=== PATIENT | female | born 1940 | race Caucasian/White ===

== ENCOUNTER 2017-02-28 15:02 | Observation (INO) | payer MEDICARE, MEDICAID ==
[2017-02-28] MEDS ORDERED: Sodium Chloride 0.9% 10 ML Syringe FLUSH PRN (15:21)
[2017-02-28] MEDS ORDERED: Albuterol/Ipratropium 3.0-0.5 MG/3 ML Neb Soln NEB ONE (15:33)
--- NOTE | 2017-02-28 15:33 | EDM.PDOC ---
ED HPI GENERAL MEDICAL PROBLEM - General Chief Complaint: Respiratory Problem Stated Complaint: COUGHING, CHEST PAIN Time Seen by Provider: 02/28/17 15:11 Source of Information: Reports: Patient, Family, RN, RN Notes Reviewed History Limitations: Reports: No Limitations - History of Present Illness INITIAL COMMENTS - FREE TEXT/NARRATIVE: Patient presents to the emergency room at [facility] with a two-day history of productive cough, shortness of breath, chest discomfort, and generalized weakness. The patient has not tried any [id number]-[id number] medications. The only past medical history is breast cancer, and when she had a left mastectomy approximately 3 years ago. The patient is a former smoker. The patient denies any focal neurological deficit. The patient's appetite has been decreased. She is trying to stay hydrated but does not feel like drinking most of the time. The patient denies any lower extremity swelling. The patient denies any nausea vomiting or diarrhea. Onset Date: 02/27/17 - Related Data Allergies Allergy/AdvReac Type Severity Reaction Status Date / Time No Known Allergies Allergy Verified 02/28/17 15:53 Home Meds: Home Meds Pravastatin Sodium [Pravastatin Sodium] 20 mg PO DAILY 02/28/17 [History] ED ROS GENERAL - Review of Systems Review Of Systems: See Below Constitutional: Reports: Weakness, Fatigue, Decreased Appetite. Denies: Chills HEENT: Reports: No Symptoms Respiratory: Reports: Shortness of Breath, Wheezing, Pleuritic Chest Pain, Cough , Sputum. Denies: Hemoptysis Cardiovascular: Reports: Chest Pain, Dyspnea on Exertion. Denies: Palpitations GI/Abdominal: Denies: Abdominal Pain, Diarrhea, Nausea, Vomiting Skin: Reports: No Symptoms Neurological: Reports: Dizziness. Denies: Headache ED EXAM, GENERAL - Physical Exam Exam: See Below Exam Limited By: No Limitations General Appearance: Alert, No Apparent Distress Eye Exam: Bilateral Eye: EOMI, Normal Inspection, PERRL Ears: Hearing Loss Neck: Supple Respiratory/Chest: Decreased Breath Sounds, Crackles, Rhonchi, Wheezing Cardiovascular: Normal Peripheral Pulses, No Edema, Tachycardia Peripheral Pulses: 2+: Radial (L), Radial (R) GI/Abdominal: Soft, Non-Tender, Abnormal Bowel Sounds (Hypoactive) Extremities: Normal Inspection Neurological: Alert, Oriented Skin Exam: Warm, Dry, Intact, Normal Color, No Rash EKG INTERPRETATION EKG Date: 02/28/17 Time: 15:19 Rhythm: NSR Rate (beats/min): [address] [place]: normal P-wave: present QRS: normal ST-T: normal QT: normal TN/PQ Interval: 0.18 Comparison: NA - no prior EKG EKG Interpretation Comments: Sinus Tachycardia with occasional ventricular premature complexes Probable Inferior LA, probably old Course - Vital Signs Last Recorded V/S: Last Vital Signs Temp 37.2 C 02/28/17 15:10 Pulse 126 H 02/28/17 16:07 Resp 24 H 02/28/17 15:10 BP 155/93 H 02/28/17 15:10 Pulse Ox 90 L 02/28/17 16:07 - Orders/Labs/Meds Orders: Active Orders 24 hr Category Date Time Status Admission Status [Patient Status] [ADT] Routine ADT 02/28/17 16:26 Active EKG 12 Lead [EKG Documentation Completion] [RC] STAT Care 02/28/17 15:21 Active RT Aerosol Therapy [RC] ASDIRECTED Care 02/28/17 15:34 Active Chest 2V [CR] Stat Exams 02/28/17 15:21 Taken CULTURE BLOOD [BC] Stat Lab 02/28/17 15:30 Received CULTURE BLOOD [BC] Stat Lab 02/28/17 15:41 Results UA W/MICROSCOPIC [URIN] Stat Lab 02/28/17 15:20 Uncollected Sodium Chloride 0.9% [Normal Saline] 1,000 ml Med 02/28/17 15:30 Active IV ASDIRECTED Sodium Chloride 0.9% [Saline Flush] Med 02/28/17 15:21 Active 10 ml FLUSH ASDIRECTED PRN Blood Culture x2 Reflex Set [OM.PC] Stat Oth 02/28/17 15:20 Ordered Peripheral IV Insertion Adult [OM.PC] Routine Oth 02/28/17 15:21 Ordered Medication Orders Sodium Chloride (Normal Saline) 1,000 mls @ 999 mls/hr IV ASDIRECTED [facility] Last Admin: 02/28/17 15:38 Dose: 999 mls/hr Sodium Chloride (Saline Flush) 10 ml FLUSH ASDIRECTED PRN PRN Reason: Keep Vein Open Labs: Laboratory Tests 02/28/17 02/28/17 02/28/17 Range/Units 15:30 15:41 15:41 WBC 7.2 (4.0-10.0) x10^3/uL RBC 4.94 (4.00-5.50) x10^6/uL Hgb 14.3 (12.0-16.0) g/dL Hct 42.9 (33.0-47.0) % MCV 86.8 (78.0-93.0) fL MCH 28.9 (26.0-32.0) pg MCHC 33.3 (32.0-36.0) g/dL RDW Coeff of Ladan 14.0 (10.0-15.0) % Plt Count 183 (130-400) x10^3/uL Add Manual Diff Yes Neutrophils % (Manual) 88 H (50-80) % Lymphocytes % (Manual) 6 L (25-50) % Monocytes % (Manual) 5 (2-11) % Eosinophils % (Manual) 1 (0-4) % Hypersegmented Neuts Rare H Toxic Granulation 1+ slight H Platelet Estimate Adequate POC ABG pH (7.35-7.45) POC ABG pCO2 (35-45) mmHG POC ABG pO2 (80-105) mmHG POC ABG HCO3 (22-26) mmol/L POC ABG Total CO2 (23-27) mmol/L POC ABG O2 Sat (95-98) % POC ABG Base Excess (-2-3) mmol/L POC FiO2 Sodium 142 (136-145) mmol/L Potassium 3.6 (3.5-5.1) mmol/L Chloride 105 (98-107) mmol/L Carbon Dioxide 28 (21-32) mmol/L BUN 7 (7-18) mg/dL Creatinine 0.9 (0.55-1.02) mg/dL Est Cr Clr Drug Dosing 44.68 mL/min Estimated GFR (MDRD) > 60 Glucose 122 H (74-106) mg/dL Lactic Acid 1.1 (0.4-2.0) mmol/L Calcium 9.0 (8.5-10.1) mg/dL Corrected Calcium 9.08 (8.5-10.1) mg/dL Total Bilirubin 0.5 (0.2-1.0) mg/dL AST 15 (15-37) U/L ALT 17 (14-59) U/L Alkaline Phosphatase 88 (46-116) U/L Creatine Kinase 39 (26-192) U/L Troponin I < 0.017 (<=0.056) ng/mL C-Reactive Protein 0.8 (<=0.9) mg/dL Total Protein 7.8 (6.4-8.2) g/dL Albumin 3.9 (3.4-5.0) g/dL Globulin 3.9 Albumin/Globulin Ratio 1.00 POC Result Comm 02/28/17 Range/Units 15:49 WBC (4.0-10.0) x10^3/uL RBC (4.00-5.50) x10^6/uL Hgb (12.0-16.0) g/dL Hct (33.0-47.0) % MCV (78.0-93.0) fL MCH (26.0-32.0) pg MCHC (32.0-36.0) g/dL RDW Coeff of Ladan (10.0-15.0) % Plt Count (130-400) x10^3/uL Add Manual Diff Neutrophils % (Manual) (50-80) % Lymphocytes % (Manual) (25-50) % Monocytes % (Manual) (2-11) % Eosinophils % (Manual) (0-4) % Hypersegmented Neuts Toxic Granulation Platelet Estimate POC ABG pH 7.383 (7.35-7.45) POC ABG pCO2 41 (35-45) mmHG POC ABG pO2 57 L* (80-105) mmHG POC ABG HCO3 24 (22-26) mmol/L POC ABG Total CO2 26 (23-27) mmol/L POC ABG O2 Sat 89 L (95-98) % POC ABG Base Excess -1 (-2-3) mmol/L POC FiO2 0.30 Sodium (136-145) mmol/L Potassium (3.5-5.1) mmol/L Chloride (98-107) mmol/L Carbon Dioxide (21-32) mmol/L BUN (7-18) mg/dL Creatinine (0.55-1.02) mg/dL Est Cr Clr Drug Dosing mL/min Estimated GFR (MDRD) Glucose (74-106) mg/dL Lactic Acid (0.4-2.0) mmol/L Calcium (8.5-10.1) mg/dL Corrected Calcium (8.5-10.1) mg/dL Total Bilirubin (0.2-1.0) mg/dL AST (15-37) U/L ALT (14-59) U/L Alkaline Phosphatase (46-116) U/L Creatine Kinase (26-192) U/L Troponin I (<=0.056) ng/mL C-Reactive Protein (<=0.9) mg/dL Total Protein (6.4-8.2) g/dL Albumin (3.4-5.0) g/dL Globulin Albumin/Globulin Ratio POC Result Comm Called critical res Meds: Medications Generic Name Dose Route Start Last Admin Trade Name Freq PRN Reason Stop Dose Admin Sodium Chloride 1,000 mls @ 999 mls/hr 02/28/17 15:30 02/28/17 15:38 Normal Saline IV 999 mls/hr ASDIRECTED ENEDELIA Administration Sodium Chloride 10 ml 02/28/17 15:21 Saline Flush FLUSH ASDIRECTED PRN Keep Vein Open Discontinued Medications Generic Name Dose Route Start Last Admin Trade Name Freq PRN Reason Stop Dose Admin Albuterol/Ipratropium 3 ml 02/28/17 15:33 02/28/17 15:43 Duoneb 3.0-0.5 Mg/3 Ml NEB 02/28/17 15:34 3 ml ONETIME ONE Administration Methylprednisolone Sodium Succinate 125 mg 02/28/17 15:34 02/28/17 15:43 Solu-Medrol IVPUSH 02/28/17 15:35 125 mg ONETIME ONE Administration - Radiology Interpretation Free Text/Narrative:: No pneumonia or edema See scanned report in EMR Departure - Departure Time of Disposition: 16:31 Disposition: Refer to Observation Condition: good Clinical Impression: COPD exacerbation, Hypoxia, Dehydration - Discharge Information - Problem List & Annotations (1) Acute exacerbation of chronic obstructive pulmonary disease (COPD) SNOMED Code(s): 407486250 Code(s): J44.1 - CHRONIC OBSTRUCTIVE PULMONARY DISEASE W (ACUTE) EXACERBATION Status: Acute Priority: High Current Visit: Yes Onset Date : ~02/27/17 (2) Hypoxia SNOMED Code(s): 857955478, 788446872 Code(s): R09.02 - HYPOXEMIA Status: Acute Current Visit: Yes (3) Dehydration SNOMED Code(s): 85350903 Code(s): E86.0 - DEHYDRATION Status: Acute Current Visit: Yes - Problem List Review Problem List Initiated/Reviewed/Updated: Yes - My Orders Last 24 Hours: My Active Orders 02/28/17 15:20 UA W/MICROSCOPIC [URIN] Stat Blood Culture x2 Reflex Set [OM.PC] Stat 02/28/17 15:21 EKG 12 Lead [EKG Documentation Completion] [RC] STAT Chest 2V [CR] Stat Sodium Chloride 0.9% [Saline Flush] 10 ml FLUSH ASDIRECTED PRN Peripheral IV Insertion Adult [OM.PC] Routine 02/28/17 15:30 CULTURE BLOOD [BC] Stat Sodium Chloride 0.9% [Normal Saline] 1,000 ml IV ASDIRECTED 02/28/17 15:34 RT Aerosol Therapy [RC] ASDIRECTED 02/28/17 15:41 CULTURE BLOOD [BC] Stat 02/28/17 16:26 Admission Status [Patient Status] [ADT] Routine - Assessment/Plan Admission H&P: Please use this note as an admission H&P Last 24 Hours: My Active Orders 02/28/17 15:20 UA W/MICROSCOPIC [URIN] Stat Blood Culture x2 Reflex Set [OM.PC] Stat 02/28/17 15:21 EKG 12 Lead [EKG Documentation Completion] [RC] STAT Chest 2V [CR] Stat Sodium Chloride 0.9% [Saline Flush] 10 ml FLUSH ASDIRECTED PRN Peripheral IV Insertion Adult [OM.PC] Routine 02/28/17 15:30 CULTURE BLOOD [BC] Stat Sodium Chloride 0.9% [Normal Saline] 1,000 ml IV ASDIRECTED 02/28/17 15:34 RT Aerosol Therapy [RC] ASDIRECTED 02/28/17 15:41 CULTURE BLOOD [BC] Stat 02/28/17 16:26 Admission Status [Patient Status] [ADT] Routine
[2017-02-28] MEDS ORDERED: methylPREDNISolone Sodium Succinate 125 MG/2 ML SDV IVPUSH ONE (15:34)
[2017-02-28] MEDS: Sodium Chloride 0.9% 1,000 ML IV SCH ×2 (15:38→17:16)
[2017-02-28 16:24] LABS: CHLORIDE,CL 105 mmol/L (98-107); SODIUM,NA 142 mmol/L (136-145)
--- NOTE | 2017-02-28 16:49 | PCM.HP ---
H&P History of Present Illness - General Date of Service: 02/28/17 Admit Problem/Dx: Admission Diagnosis/Problem Admission Diagnosis/Problem COPD, Severe chronic obstructive pulmonary disease Hypoxia Dehydration Source of Information: Patient, Family, RN, RN Notes Reviewed History Limitations: Reports: No Limitations - History of Present Illness Initial Comments - Free Text/Narative: Patient presents to the emergency room at [facility] with a two-day history of productive cough, shortness of breath, chest discomfort, and generalized weakness. The patient has not tried any vzuz-sfg-[id number] medications. The only past medical history is breast cancer, and when she had a left mastectomy approximately 3 years ago. The patient is a former smoker. The patient denies any focal neurological deficit. The patient's appetite has been decreased. She is trying to stay hydrated but does not feel like drinking most of the time. The patient denies any lower extremity swelling. The patient denies any nausea vomiting or diarrhea. Symptom Onset Date: 02/27/17 Duration of Symptoms: Reports: Constant, Getting Worse - Related Data Allergies/Adverse Reactions: Allergies Allergy/AdvReac Type Severity Reaction Status Date / Time No Known Allergies Allergy Verified 02/28/17 15:53 Home Medications: Home Meds Pravastatin Sodium [Pravastatin Sodium] 20 mg PO DAILY 02/28/17 [History] Past Medical History Cardiovascular History: Reports: High Cholesterol Respiratory History: Reports: COPD Social & Family History - Family History Family Medical History: Noncontributory - Tobacco Use Smoking Status *Q: Former Smoker Used Tobacco, but Quit: No - Tobacco Core Measures Tobacco Use/Smoking Within Last 30 Days: Refused Screening - Alcohol Use Alcohol Use History: No Alcohol Use in Last Twelve Months: No - Recreational Drug Use Recreational Drug Use: No Drug Use in Last 12 Months: No H&P Review of Systems - Review of Systems: Review Of Systems: See Below General: Reports: Weakness, Decreased Appetite. Denies: Fever, Chills HEENT: Reports: No Symptoms Pulmonary: Reports: Shortness of Breath, Wheezing, Pleuritic Chest Pain, Cough Cardiovascular: Reports: Chest Pain, Orthopnea, Lightheadedness. Denies: Dyspnea on Exertion Gastrointestinal: Reports: Nausea. Denies: Abdominal Pain, Diarrhea, Vomiting Skin: Reports: No Symptoms Neurological: Reports: No Symptoms Exam - Exam Exam: See Below - Vital Signs Vital Signs: Last Vital Signs Temp 37.2 C 02/28/17 15:10 Pulse 126 H 02/28/17 16:07 Resp 24 H 02/28/17 15:10 BP 155/93 H 02/28/17 15:10 Pulse Ox 90 L 02/28/17 16:07 Weight: 61.689 kg - Exam Quality Assessment: Supplemental Oxygen General: Alert, Oriented HEENT: Conjunctiva Clear, Mucosa Moist & [place], PERRLA Neck: Supple Lungs: Decreased Breath Sounds, Crackles, Rhonchi, Wheezing Cardiovascular: Regular Rhythm, Normal S1, Normal S2, Tachycardia Abdomen: Soft, Hypoactive Bowel Sounds Extremities: Normal Inspection Peripheral Pulses: 2+: Radial (L), Radial (R) Skin: Warm, Dry, Intact Neuro Extensive - Mental Status: Alert, Oriented x3 - Patient Data Result Diagrams: 02/28/17 15:41 02/28/17 15:30 *Q Meaningful Use (ADM) - VTE *Q VTE Criteria *Q: VTE Mechanical Contraindications *Q: At Risk for Falls VTE Pharmacological Contraindications *Q: Med Refused by Patient (patient has difficulty swallowing so she avoids pills) - VTE Risk Assess *Q Each Risk Factor Represents 3 Points: Age 75 Years or Greater Total Score 3 Point Risk Factors: 3 - Stroke *Q Stroke Criteria *Q: Aspirin Contraindications Stroke *Q: Patient Refusal - AMI *Q AMI Criteria *Q: - Problem List (1) Acute exacerbation of chronic obstructive pulmonary disease (COPD) SNOMED Code(s): 972036507 ICD Code: J44.1 - CHRONIC OBSTRUCTIVE PULMONARY DISEASE W (ACUTE) EXACERBATION Status: Acute Priority: High Current Visit: Yes Onset Date : ~02/27/17 (2) Hypoxia SNOMED Code(s): 752077120, 092591260 ICD Code: R09.02 - HYPOXEMIA Status: Acute Current Visit: Yes (3) Dehydration SNOMED Code(s): 97769289 ICD Code: E86.0 - DEHYDRATION Status: Acute Current Visit: Yes Problem List Initiated/Reviewed/Updated: Yes Orders Last 24hrs: Medication Orders Sodium Chloride (Normal Saline) 1,000 mls @ 999 mls/hr IV ASDIRECTED ENEDELIA Last Admin: 02/28/17 15:38 Dose: 999 mls/hr Sodium Chloride (Saline Flush) 10 ml FLUSH ASDIRECTED PRN PRN Reason: Keep Vein Open Assessment/Plan Comment:: 76-year-old female patient with a past medical history of high cholesterol and breast cancer status post mastectomy, is admitted to the observation unit for acute COPD exacerbation, hypoxia, dehydration. The patient will be placed on IV fluids. We will start the patient on Solu-Medrol IV every 24 hours. The patient will be on to a nebs every 4 hours while awake and every 2 hours while awake as needed. Will prophylactically start patient on IV Zithromax per GOLD guidelines. Patient refuses to take pills if at all possible. Patient wishes to be a DNR. Patient does not want to be transferred to a higher level of care should the need arise. Patient will be started on a soft diet. Early ambulation for DVT prophylaxis. I do not anticipate hospital stay >48 hours.
[2017-02-28] MEDS ORDERED: Albuterol/Ipratropium 3.0-0.5 MG/3 ML Neb Soln NEB PRN (17:09)
[2017-02-28] MEDS ORDERED: Ondansetron 4 MG/2 ML SDV IV PRN (17:15)
[2017-02-28] MEDS ORDERED: Polyethylene Glycol 3350 Powder 17 GM Packet PO PRN (17:15)
[2017-02-28] MEDS ORDERED: Zolpidem 5 MG Tab PO PRN (17:15)
[2017-02-28] MEDS ORDERED: Docusate Sodium 100 MG Cap PO PRN (17:15)
[2017-02-28] MEDS ORDERED: Acetaminophen 325 MG Tab PO PRN (17:15)
[2017-02-28] MEDS: Albuterol/Ipratropium 3.0-0.5 MG/3 ML Neb Soln NEB SCH ×3 (18:07→22:07)
[2017-02-28] MEDS: Azithromycin 500 MG in Sodium Chloride 0.9% 250 ML IV SCH (18:07)
[2017-03-01] MEDS: Albuterol/Ipratropium 3.0-0.5 MG/3 ML Neb Soln NEB SCH ×7 (03:28→23:18)
[2017-03-01] MEDS: Sodium Chloride 0.9% 1,000 ML IV SCH ×3 (04:10→15:44)
[2017-03-01] MEDS: methylPREDNISolone Sodium Succinate 125 MG/2 ML SDV IVPUSH SCH (08:12)
[2017-03-01] MEDS: Simvastatin 10 MG Tab PO SCH (08:12)
[2017-03-01] MEDS: Azithromycin 500 MG in Sodium Chloride 0.9% 250 ML IV SCH (08:12)
[2017-03-01 08:49] LABS: CHLORIDE,CL 110 mmol/L (98-107); SODIUM,NA 145 mmol/L (136-145)
--- NOTE | 2017-03-02 03:33 | PN ---
Progress Note for ANNALEE HAWKINS Date:03/01/2017 Room #: VM.212 SUBJECTIVE: Annalee was admitted on 02/28/2017 with acute COPD exacerbation. Overall she is doing well, but continues to be borderline hypercarbic with a pCO2 of 39. The patient is requesting to go home today, but continues to have some cough and wheezing as well. Decision was made to keep the patient admitted and discharged on the morning of 03/02/2017. OBJECTIVE: General: This is a 76-year-old female patient, who is in no acute distress. Vital Signs: Blood pressure is 112/66, O2 saturation is 97% on oxygen per nasal cannula at 2 L/minute, respiratory rate 12, heart rate is 96. Temperature is 36.6. Skin: Warm, pink, and dry. Mouth: Oral mucosa is moist. Lungs: Diminished bilaterally wit wheezing. Heart: Regular rate and rhythm. Abdomen: Soft and nontender. There is no hepatosplenomegaly noted. There is no masses noted. Extremities: Without edema. Neurologic: She is alert and oriented answers all questions appropriately. Her speech is fluent. She is extremely hard of hearing. DIAGNOSTIC DATA: A chest x-ray this morning does reveal what appears to be some new right upper lobe infiltrates. ASSESSMENT: 1. Chronic obstructive pulmonary disease exacerbation. 2. Community-acquired pneumonia. PLAN: The patient will be kept on the IV Solu-Medrol. She is currently on azithromycin and Rocephin 1 g daily. We will continue with the above medications with albuterol nebulizer treatments with continued DuoNeb breathing treatments. We will re-evaluate for probable discharge on the morning of 03/02/2017. All questions were answered. MWK: 03/02/2017 03:09:13 MODL: 03/02/2017 03:25:41 /[id number]
[2017-03-02] MEDS: Sodium Chloride 0.9% 1,000 ML IV SCH (04:12)
[2017-03-02] MEDS: Albuterol/Ipratropium 3.0-0.5 MG/3 ML Neb Soln NEB SCH ×3 (04:53→11:22)
[2017-03-02 06:16] VITALS: BP 123/72
[2017-03-02] MEDS: methylPREDNISolone Sodium Succinate 125 MG/2 ML SDV IVPUSH SCH (07:40)
[2017-03-02] MEDS: Simvastatin 10 MG Tab PO SCH (07:40)
[2017-03-02] MEDS: Azithromycin 500 MG in Sodium Chloride 0.9% 250 ML IV SCH (07:40)
[2017-03-02] MEDS ORDERED: Bupivacaine 0.5% 30 ML SDV INJECT PRN (09:07)
[2017-03-02] MEDS ORDERED: oxyCODONE 5 MG Tab PO ONE (09:16)
--- NOTE | 2017-03-02 11:25 | PN ---
Progress Note for ANNALEE HAWKINS Date: 03/02/2017 Room #: VM.212 SUBJECTIVE: Annalee complains of ingrown toenail to the third digit of her left foot. She has had an ingrown toenail with a fungal infection, and the toenail has grown around and into the bottom side of the toe. The toenail is approximately 5 cm in length. This has greatly inhibited her ability to ambulate and do her activities for daily living. Subsequently, a decision was made to remove the entire toenail. OBJECTIVE: General: A 76-year-old female patient, in no acute distress. Musculoskeletal: Again, approximately 4 to 5 cm in length toenail growing completely around the tip of the toe and into the bottom side of the toe. There is excoriation and ulceration to the skin on the underside of the toe where the toenail has grown into the soft tissue. PROCEDURE COURSE: The base of the toe was anesthetized with 0.25% Marcaine after it was cleaned with chlorhexidine. After adequate anesthesia was obtained, a hemostat was used to liberate the toenail from the nail matrix and was easily removed. To note, the entire toe was cleansed with chlorhexidine. There was only a small amount of tissue that was adhered to the nail matrix and most of the toenail was no longer vital. The patient tolerated the procedure well. A Band-Aid with antibiotic ointment was placed over the removed nail matrix. ASSESSMENT: Toenail removal to third digit of left foot. PLAN: We did have her set up for home health. They will evaluate the toe either today or tomorrow. Follow up in the clinic in 7 to 10 days. Return to the emergency room if there is any redness, swelling, or discharge. I did give her a short course of oxycodone 5 mg tablets with instructions to take 1 every 4 to 6 hours as needed for pain. All questions were answered. MWK: 03/02/2017 10:51:59 MODL: 03/02/2017 11:20:57 /[id number]
--- NOTE | 2017-03-03 02:38 | DISCH ---
DISCHARGING PROVIDER: Gaurav Lawson PA-C. ADMITTING DIAGNOSIS: Chronic obstructive pulmonary disease exacerbation. DISCHARGE DIAGNOSES: 1. Chronic obstructive pulmonary disease exacerbation. 2. Community-acquired pneumonia. 3. Ingrown third digit of the left foot. SUBJECTIVE: Annalee presented to the emergency room on 09/30/2017 with increased respiratory distress. The patient was found to be wheezing and received numerous nebulizer treatments and was started on IV steroids as well as IV Rocephin and azithromycin. The patient's initial chest x-ray showed hyperinflation but no obvious infiltrate. Her repeat chest x-ray yesterday morning did show evidence of some right upper lobe and bilateral lower lobe atelectasis versus early infiltrate. Overall, the patient states that she was feeling much better and felt that she was stable enough to be discharged. The patient also complained of ingrown third digit of the left foot and did request evaluation and treatment for this. Please refer to the progress notes described regarding the removal of this ingrown toenail. PHYSICAL EXAMINATION: Vital Signs: Blood pressure is 123/72, pulse rate is 82, temperature is 36.3, respiratory rate 16, O2 saturation at discharge was 99% on 2 L and 96% off oxygen. Mouth: Oral mucosa is moist. Lungs: Does continue to have some mild wheezing and are mildly diminished but are much improved. Heart: Regular rate and rhythm. Abdomen: Soft, nontender. There is no hepatosplenomegaly noted. There are no masses noted. Extremities: Without edema. Remainder of her physical examination is within normal limits. HOSPITAL COURSE: Again, the patient was receiving IV Solu-Medrol 125 mg once daily and IV azithromycin and Rocephin. Her toenail was removed today without difficulty. DISPOSITION: Home with home health. She also has a friend that helps her with her activities for daily living. DISCHARGE CONDITION: Good. FOLLOWUP: Follow up with Dr. Will Lorenz on 03/16/2017 at 10:30 in the morning. DISCHARGE MEDICATIONS: Augmentin 875 mg twice daily for 10 days, oxycodone 5 mg 1 tablet every 4-6 hours as needed for pain, Combivent inhaler 2 puffs 4 times daily, prednisone 40 mg once daily. DISCHARGE INSTRUCTIONS: She is to return to the emergency room if she develops any worsening of dyspnea. She is to watch for signs of erythema or swelling to her left middle toe. All questions were answered. MWK: 03/02/2017 12:39:45 MODL: 03/03/2017 02:32:04 /[id number]
== END 2017-03-02 11:40 | disposition home health service (06) ==
LOC: VM.ED 15:02 → VM.MS 16:26
PROVIDERS: ADMIT Nurse Practitioner Family; ATTEND Nurse Practitioner Family
DX: J44.1 Chronic obstructive pulmonary disease with (acute) exacerbation (principal); J18.9 Pneumonia, unspecified organism; E86.0 Dehydration; E78.00 Pure hypercholesterolemia, unspecified; L60.0 Ingrowing nail; R00.0 Tachycardia, unspecified; I49.3 Ventricular premature depolarization; R55 Syncope and collapse; Z85.3 Personal history of malignant neoplasm of breast; Z90.10 Acquired absence of unspecified breast and nipple; Z87.891 Personal history of nicotine dependence; Z79.899 Other long term (current) drug therapy; Z79.891 Long term (current) use of opiate analgesic
CPT/HCPCS: 36415; 36600; 71020; 80048; 80053; 81001; 82550; 82803; 83605; 84484; 85025; 86140; 87040; 93005; 94640; 94760; 96361; 96365; 96375; 96376; 99220; 99285; A9270; G0378; J0456; J2930; J7030; J7050; 11730; 96374; 99217; 99225

== ENCOUNTER 2018-05-15 12:23 | Emergency (ER) | payer MEDICARE, MEDICAID ==
[2018-05-15 13:22] VITALS: BP 139/83
[2018-05-15] MEDS ORDERED: Take Home: Azithromycin 250 MG, 2 Tab Pack PO ONE (13:57)
--- NOTE | 2018-05-15 13:58 | EDM.PDOC ---
ED HPI GENERAL MEDICAL PROBLEM - General Chief Complaint: Respiratory Problem Stated Complaint: COUGH Time Seen by Provider: 05/15/18 12:28 Source of Information: Reports: Patient, Family, RN, RN Notes Reviewed History Limitations: Reports: No Limitations - History of Present Illness INITIAL COMMENTS - FREE TEXT/NARRATIVE: Patient presents to the ED at [facility] with a couple day history of a productive cough. Patient states she feels chilled. No temp taken at home. Denies N/V/D. No chest pain. No SOB. Onset Date: 05/12/18 - Related Data Allergies Allergy/AdvReac Type Severity Reaction Status Date / Time No Known Allergies Allergy Verified 05/15/18 13:14 Home Meds: Home Meds Pravastatin Sodium 20 mg PO DAILY 02/28/17 [History] Azithromycin [Zithromax] 250 mg PO DAILY 4 Days #4 tab 05/15/18 [Rx] Past Medical History HEENT History: Reports: Other (See Below) Other HEENT History: IGIUGIG Cardiovascular History: Reports: High Cholesterol Respiratory History: Reports: COPD Other Respiratory History: emphysema Oncologic (Cancer) History: Reports: Breast - Past Surgical History Respiratory Surgical History: Reports: None Social & Family History - Family History Family Medical History: Noncontributory - Tobacco Use Smoking Status *Q: Former Smoker Used Tobacco, but Quit: Yes Month/Year Tobacco Last Used: 10/04 - Caffeine Use Caffeine Use: Reports: Coffee ED ROS GENERAL - Review of Systems Review Of Systems: See Below Constitutional: Reports: Chills. Denies: Fever, Weakness HEENT: Reports: No Symptoms Respiratory: Reports: Cough, Sputum. Denies: Shortness of Breath Cardiovascular: Denies: Chest Pain, Palpitations GI/Abdominal: Denies: Abdominal Pain, Nausea, Vomiting Skin: Reports: No Symptoms Neurological: Reports: Dizziness. Denies: Headache, Numbness, Paresthesia, Tingling ED EXAM, GENERAL - Physical Exam Exam: See Below Exam Limited By: No Limitations General Appearance: Alert, No Apparent Distress Eye Exam: Bilateral Eye: Normal Inspection, PERRL Ears: Normal External Exam, Normal Canal, Normal TMs Nose: Normal Inspection Neck: Supple Respiratory/Chest: Decreased Breath Sounds, Rhonchi Cardiovascular: Normal Peripheral Pulses, Regular Rate, Rhythm Peripheral Pulses: 2+: Radial (L), Radial (R) GI/Abdominal: Normal Bowel Sounds, Soft, Non-Tender Neurological: Alert, Oriented Skin Exam: Warm, Dry, Intact, Normal Color Course - Vital Signs Last Recorded V/S: Last Vital Signs Temp 37.1 C 05/15/18 12:28 Pulse 100 05/15/18 12:28 Resp 18 05/15/18 12:28 BP 139/83 05/15/18 12:28 Pulse Ox 95 05/15/18 12:28 - Orders/Labs/Meds Orders: Active Orders 24 hr Category Date Time Status Chest 2V [CR] Stat Exams 05/15/18 13:12 Taken Departure - Departure Time of Disposition: 13:56 Disposition: Home, Self-Care 01 Condition: Good Clinical Impression: Acute bacterial bronchitis - Discharge Information *PRESCRIPTION DRUG MONITORING PROGRAM REVIEWED*: Not Applicable *COPY OF PRESCRIPTION DRUG MONITORING REPORT IN PATIENT [place]: Not Applicable Prescriptions: Azithromycin [Zithromax] 250 mg PO DAILY 4 Days #4 tab Instructions: Acute Bronchitis, Adult Referrals: Will Lorenz MD [Primary Care Provider] - Additional Instructions: 1. Stay well hydrated and rest 2. Take antibiotics for the full coarse 3. May use Tylenol if needed 4. See your Primary as symptoms warrant - Problem List Review Problem List Initiated/Reviewed/Updated: Yes - My Orders Last 24 Hours: My Active Orders 05/15/18 13:12 Chest 2V [CR] Stat - Assessment/Plan Last 24 Hours: My Active Orders 05/15/18 13:12 Chest 2V [CR] Stat Assessment:: Acute bacterial bronchitis Plan: Start ZPak as directed. LOTS of fluids. rest and relax.
== END 2018-05-15 14:13 | disposition home or self-care (01) ==
LOC: VM.ED 12:23
DX: J20.8 Acute bronchitis due to other specified organisms (principal); B96.89 Other specified bacterial agents as the cause of diseases classified elsewhere; J44.9 Chronic obstructive pulmonary disease, unspecified; E78.00 Pure hypercholesterolemia, unspecified; Z87.891 Personal history of nicotine dependence; Z79.899 Other long term (current) drug therapy
CPT/HCPCS: 71046; 99283; A9270